=== PATIENT | female | born 1990 | race Two or more races ===

== ENCOUNTER 2019-06-19 18:24 | Inpatient (IN) | payer OTHER ==
[~2019-06-19] VITALS: Ht 152.4 cm; Wt 63.5 kg
[2019-06-19] MEDS ORDERED: OBSTETRIX ONE1 EACH PO (19:49)
== END 2019-06-21 13:38 | disposition home or self-care (01) | DRG 807 ==
LOC: SURG-SUITE 18:24 → LDR 18:24 → SURG-SUITE 21:32 → O/R 06-21 14:15
PROVIDERS: ADMIT Obstetrics & Gynecology
PROC: 10E0XZZ Delivery of Products of Conception, External Approach (ICD-10-PCS; principal; 2019-06-19)
PROC: 0W8NXZZ Division of Female Perineum, External Approach (ICD-10-PCS; 2019-06-19)
PROC: 4A1HXCZ Monitoring of Products of Conception, Cardiac Rate, External Approach (ICD-10-PCS; 2019-06-19)
DX: O80 Encounter for full-term uncomplicated delivery (principal); Z37.0 Single live birth; Z3A.38 38 weeks gestation of pregnancy

== ENCOUNTER 2023-05-07 11:08 | Emergency (ER) | payer OTHER ==
[~2023-05-07] VITALS: Ht 152.4 cm; Wt 52.2 kg
[~2023-05-07 11:08] MED LIST: OBSTETRIX ONE1 EACH PO
[2023-05-07 13:01] LABS: HEMATOCRIT 35.5 % (36.0-45.00); HEMOGLOBIN 11.7 g/dL (12.0-15.00); MEAN CELL VOLUME 79.7 fL (80.00-100.00); MEAN CORPUSCULAR HEMOGLOBIN 26.2 pg (27.00-32.0); MEAN CORPUSCULAR HGB CONC 32.8 g/dl (32.0-36.0); PLATELET COUNT 237 K/uL (150-450); RED BLOOD COUNT 4.46 M/uL (4.00-6.00); RED CELL DISTRIBUTION WIDTH 14.9 % (11.5-14.5)
== END 2023-05-07 16:05 | disposition home or self-care (01) ==
LOC: ER 11:08
PROVIDERS: Emergency Medicine
DX: O21.8 Other vomiting complicating pregnancy (principal); Z86.16 Personal history of COVID-19; J45.909 Unspecified asthma, uncomplicated; Z88.6 Allergy status to analgesic agent